=== PATIENT | female | born 1940 | race Caucasian/White ===

== ENCOUNTER 2016-12-25 15:15 | Emergency (ER) | payer MEDICARE ==
[2016-12-25 15:27] VITALS: BMI 32.9
[2016-12-25 15:31] VITALS: BP 157/74; PULSE 73; RESP 17; TEMP 98.2; O2SAT 95
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
--- NOTE | 2016-12-25 18:54 | RAD ---
PROCEDURE: Cervical Spine Radiographs. HISTORY: Pain. COMPARISON: None. FINDINGS: BONES: Alignment maintained. No fracture. Dens Intact. DISC SPACES: Normal. SOFT TISSUES: Normal. No prevertebral soft tissue swelling. OTHER FINDINGS: None. IMPRESSION: Normal cervical spine radiographs
--- NOTE | 2016-12-26 10:33 | RAD ---
PROCEDURE: Radiographs of the Lumbar Spine. HISTORY: [facility] COMPARISON: No prior. FINDINGS: BONES: Normal alignment. No listhesis. No fracture. DISC SPACES: Unremarkable. OTHER FINDINGS: None. IMPRESSION: Unremarkable radiographs of the lumbar spine.
--- NOTE | 2016-12-26 11:25 | RAD ---
HISTORY: [facility] COMPARISON: No prior. FINDINGS: BONES: Alignment maintained. No fracture. DISC SPACES: Normal. SOFT TISSUES: Normal. OTHER FINDINGS: None. IMPRESSION: Normal radiographs of the thoracic spine.
== END 2016-12-25 17:20 | disposition left against medical advice (07) ==
LOC: ED 15:15
DX: S39.012A Strain of muscle, fascia and tendon of lower back, initial encounter (principal); V49.9XXA Car occupant (driver) (passenger) injured in unspecified traffic accident, initial encounter

== ENCOUNTER 2018-08-31 07:23 | Outpatient (CLI) | payer MEDICARE | END 2018-08-31 07:24 | disposition home or self-care (01) | LOC: RAD 07:23 ==

== ENCOUNTER 2018-09-05 08:31 | Outpatient (CLI) | payer MEDICARE | END 2018-09-05 08:32 | disposition home or self-care (01) | LOC: RAD 08:31 ==